=== PATIENT | female | born 1970 | race Caucasian/White ===

== ENCOUNTER 2020-10-19 14:52 | Emergency (ER) | payer OTHER ==
[~2020-10-19 14:52] MED LIST: FLEXERIL10 MG PO; PREDNISONE 20MG20 MG PO
[2020-10-19 15:55] LABS: AMPHETAMINES POSITIVE (NEGATIVE); BARBITURATES NEGATIVE (NEGATIVE); ECSTASY (MDMA) NEGATIVE (NEGATIVE); MARIJUANA (THC) NEGATIVE (NEGATIVE); METHADONE NEGATIVE (NEGATIVE); OPIATES NEGATIVE (NEGATIVE); OXYCODONE NEGATIVE (NEGATIVE)
== END 2020-10-19 16:29 ==
LOC: FER 14:52
PROVIDERS: Emergency Medicine
DX: F19.10 Other psychoactive substance abuse, uncomplicated (principal); F17.200 Nicotine dependence, unspecified, uncomplicated
CPT/HCPCS: 36415; 80305; 99283; G0480

== ENCOUNTER 2022-02-15 15:47 | Day surgery (SDCO) | payer OTHER ==
[~2022-02-15] VITALS: Ht 160 cm; Wt 53.6 kg
[2022-02-15 16:28] LABS: BASOPHIL 0.2 % (0-2); EOSINOPHIL 0.1 % (0-5); HCT 39.3 % (37.0-47.0); HGB 12.7 g/dl (12.5-16.0); LYMPHOCYTE 4.7 % (15-48); MCH 27.8 pg (25.0-31.0); MCHC 32.3 g/dL (32.0-36.0); MONOCYTE 2.8 % (0-12); MPV 10.4 fL (6.0-9.5); NEUTROPHIL 91.8 % (41-80); NRBC 0; PLT 304 K/uL (150-400); RBC 4.57 M/uL (4.20-5.40); RDW 13.9 % (11.5-14.0); WBC 17.3 K/uL (4.0-10.5)
[2022-02-15 16:31] LABS: BILIRUBIN NEGATIVE (NEGATIVE); BLOOD 1+ Ery/uL (NEGATIVE); CLARITY CLEAR (CLEAR); COLOR YELLOW (YELLOW); GLUCOSE (U) 3+ mg/dL (NORMAL); LEUKOCYTES NEGATIVE Leu/uL (NEGATIVE); NITRITE POSITIVE (NEGATIVE); PROTEIN NEGATIVE (NEGATIVE); UROBILINOGEN 0.2 mg/dL (0.2-1.0)
[2022-02-15 16:34] LABS: AMPHETAMINES NEGATIVE (NEGATIVE); BARBITURATES NEGATIVE (NEGATIVE); ECSTASY (MDMA) NEGATIVE (NEGATIVE); MARIJUANA (THC) NEGATIVE (NEGATIVE); METHADONE NEGATIVE (NEGATIVE); OPIATES NEGATIVE (NEGATIVE); OXYCODONE NEGATIVE (NEGATIVE)
[2022-02-15 16:38] LABS: BACTERIA 2+; SQUAMOUS EPITHELIAL CELLS RARE; URINARY RBC RARE
[2022-02-15 16:40] LABS: INR 1.04 (0.9-1.2); PROTHROMBIN TIME 13.3 SECONDS (11.9-13.9); PTT 22.1 SECONDS (24.9-34.6)
[2022-02-15 17:12] LABS: ALBUMIN 3.7 g/dL (3.4-5.0); ALKALINE PHOSHATASE 219 U/L (46-116); ALT 383 U/L (14-59); AST 726 U/L (15-37); BILIRUBIN - TOTAL 0.3 mg/dL (0.2-1.0); BUN 17 mg/dL (7-18); BUN/CREAT RATIO (CALC) 33.3 RATIO; CHLORIDE 96 mmol/L (98-107); CO2 (BICARBONATE) 25 mmol/L (21-32); CREATININE 0.51 mg/dL (0.51-0.95); GLOBULIN (CALCULATION) 4.1 g/dL; LIPASE 161 U/L (73-393); POTASSIUM 3.7 mmol/L (3.5-5.1); TOTAL PROTEIN 7.8 g/dL (6.4-8.2)
[2022-02-15 17:13] LABS: GLUCOSE 547 mg/dL (74-106)
[2022-02-15 17:14] LABS: ACETAMINOPHEN (TYLENOL) < 2.0 ug/mL (10.0-30.0)
[2022-02-15 17:24] LABS: LACTIC ACID 1.2 mmol/L (0.4-1.9)
[2022-02-15 17:27] LABS: CORONAVIRUS 2019 SARS-COV-2 NEGATIVE (NEGATIVE); INFLUENZA A NAA NEGATIVE (NEGATIVE)
[2022-02-15 23:08] LABS: HCG (URINE) SCREEN NEGATIVE (NEGATIVE)
[2022-02-16 07:07] LABS: ALBUMIN 2.7 g/dL (3.4-5.0); BILIRUBIN - TOTAL 0.2 mg/dL (0.2-1.0); BUN/CREAT RATIO (CALC) 32.6 RATIO; CREATININE 0.46 mg/dL (0.51-0.95); FT4 (FREE T4) 1.3 ng/dL (0.76-1.46); GLOBULIN (CALCULATION) 2.9 g/dL; POTASSIUM 2.8 mmol/L (3.5-5.1)
[2022-02-16 07:42] LABS: TOTAL PROTEIN 5.6 g/dL (6.4-8.2)
[2022-02-16] MEDS ORDERED: GLYBURIDE5 MG PO (12:24)
[2022-02-16] MEDS ORDERED: METFORMIN HCL1000 MG PO (12:24)
[2022-02-16] MEDS ORDERED: BACTRIM DS TAB1 EACH PO (12:24)
--- NOTE | 2022-02-16 13:34 | NUR ---
02/16/22 Ms. Aragon is a single 51 y/o woman. She is homeless and is familiar with [facility]. Ms. Aragon was not forth coming re: if she is allowed to stay the night or is in the [facility] "Street Program". Ms. Aragon states that [place] She was reported to have found down in a public bathroom with needles around her. Ms. Aragon elected not to elaborate on the drug use history. She stated the needles found around her are legal beause she is in a needle exchange program. - The Reference Test Clerk has made application for presumptive Medicaid. The Medicaid # will not be eligible for up to 72 hours. - A voucher was provided through [employer] for prescriptions. - Ms. Aragon was educated to drug treatment programs, housing, and shelters.
--- NOTE | 2022-02-16 14:28 | NUR ---
RN AT BEDSIDE AT 1419 TO REVIEW DISCHARGE PAPERWORK AND INSTRUCTIONS WITH PATIENT. PT ASKING TO "STAY A LITTLE LONGER BC SHE JUST DOESN'T THINK SHE CAN MAKE IT OUT THERE." PT IS HOMELESS BUT HAS BEEN GIVEN INFORMATION BY DESK CLERK FOR RESOURCES.
[2022-02-17 07:08] LABS: HBSAG SCREEN Negative (Negative); HCV AB <0.1 (0.0-0.9); HEP A AB, IGM Negative (Negative); HEP B CORE AB, IGM Negative (Negative)
== END 2022-02-16 17:30 | disposition home or self-care (01) ==
LOC: EDBD 15:47 → FER 15:47 → FMS 20:15
PROVIDERS: Internal Medicine; Nurse Practitioner Acute Care; ADMIT Internal Medicine
DX: E11.65 Type 2 diabetes mellitus with hyperglycemia (principal); A41.9 Sepsis, unspecified organism; N39.0 Urinary tract infection, site not specified; G93.41 Metabolic encephalopathy; R01.1 Cardiac murmur, unspecified; L02.811 Cutaneous abscess of head [any part, except face]; L65.9 Nonscarring hair loss, unspecified; R94.5 Abnormal results of liver function studies; Q67.5 Congenital deformity of spine; G89.29 Other chronic pain; M54.2 Cervicalgia; Z20.822 Contact with and (suspected) exposure to COVID-19; F17.210 Nicotine dependence, cigarettes, uncomplicated; F15.90 Other stimulant use, unspecified, uncomplicated; Z88.8 Allergy status to other drugs, medicaments and biological substances; Z91.013 Allergy to seafood
CPT/HCPCS: 36415; 36600; 70450; 71250; 80053; 80074; 80305; 81001; 82009; 82140; 82803; 83036; 83605; 83690; 84439; 84443; 84481; 84484; 84703; 85025; 85610; 85730; 87040; 87076; 87077; 87088; 87186; 93005; G0378; G0480; J0696; J1650; J2060; J2543; J3370; J7030; J7050; U0002